=== PATIENT | male | born 1955 | race Caucasian/White ===

== ENCOUNTER 2019-02-17 10:40 | Inpatient (IN) ==
[~2019-02-17 10:40] MED LIST: LIDOCAINE W/ SODIUM BICARB 0.5 ML SYR ONE; LIDOCAINE W/ SODIUM BICARB 0.5 ML SYR SUBD ONE; Lactated Ringers 1,000 ML PRIMARY IV ONE; Nasal Sanitizer POPSWAB ampule 3 AMP (Nozin) PREOP DOSE ENOS SCH; Sodium Chloride 0.9% 0 ML IV ONE; Sodium Chloride 0.9% 250 ML ONE; Vancomycin Inj 1gm vial ONE; ceFAZolin Inj 2gm (Premix) 2 GM/50 ML BAG IV ONE
[2019-02-17] MEDS ORDERED: Vancomycin-PHA to Dose IV PRN (11:00)
[2019-02-17 11:13] LABS: BILIRUBIN,URINE NEGATIVE (NEG); CLARITY,URINE CLEAR (CLEAR); COLOR,URINE YELLOW (Y); GLUCOSE, URINE (UA) NEGATIVE (NEG); OCCULT BLOOD,URINE NEGATIVE (NEG); PROTEIN,URINE NEGATIVE (NEG); UROBILINOGEN,URINE 0.2 EU/dL (0.2)
[2019-02-17 11:14] LABS: URINE SAMPLE TYPE CLEAN CATCH URINE
[2019-02-17] MEDS ORDERED: Sodium Chloride 0.9% vial 10 ML ONE ×2 (12:39→17:08)
[2019-02-17] MEDS ORDERED: BUPIVACAINE 0.25% W/ EPI - 10 ML VIAL ONE (12:40)
[2019-02-17] MEDS ORDERED: BACITRACIN 50,000 UNIT VIAL IRRIG ONE ×2 (12:40→17:08)
[2019-02-17] MEDS ORDERED: PROPOFOL 10 MG/1 ML (200 MG/20 ML) VIAL IV ONE (12:48)
[2019-02-17] MEDS ORDERED: fentaNYL Inj 250 MCG/5 ML VIAL ONE ×2 (12:50→14:45)
[2019-02-17] MEDS ORDERED: Propofol 2,000 MG/200 ML VIAL IV ONE ×2 (12:50→16:14)
[2019-02-17] MEDS ORDERED: LIDOCAINE MPF 2% - 5 ML (20 MG/1 ML) ONE (12:50)
[2019-02-17] MEDS ORDERED: DEXAMETHASONE PF 10 MG/1 ML VIAL ONE (12:50)
[2019-02-17] MEDS ORDERED: KETOROLAC 30 MG/1 ML VIAL ONE (12:50)
[2019-02-17] MEDS ORDERED: ONDANSETRON 4 MG/2 ML VIAL ONE (12:50)
[2019-02-17] MEDS ORDERED: ROCURONIUM 10 MG/1 ML - 5 ML VIAL IVP ONE (12:57)
[2019-02-17] MEDS ORDERED: LIDOCAINE HCL 2 % 10 ML JELLY URO-JECT TOPICAL ONE (13:06)
[2019-02-17] MEDS ORDERED: LIDOCAINE HCL 2 % 10 ML JELLY URO-JECT TOPICAL PRN (13:53)
[2019-02-17] MEDS ORDERED: Lactated Ringers 1,000 ML PRIMARY IV ONE ×2 (14:17→17:12)
[2019-02-17] MEDS ORDERED: ceFAZolin 1 GM VIAL ONE (17:08)
[2019-02-17] MEDS ORDERED: NALOXONE 0.4 MG/1 ML VIAL ONE (17:56)
--- NOTE | 2019-02-17 18:05 | GEN.OPNOTE ---
Operative Note Surgery Date: 02/17/19 Preoperative Diagnosis: 1.) Right arm numbness and tingling. 2.) Multilevel advanced cervical degenerative disc disease, C3-4, C4-5, C5-6. 3.) Multilevel cervical spondylosis with facet arthropathy and hypertrophy C4-5 on the left and C5-6 bilaterally. 4.) Multilevel cervical central canal stenosis, mild C3-4, moderate C4-5, severe C5-6. 5.) Multilevel cervical neuroforaminal stenosis, moderately severe C3-4 on the left, severe C4-5 bilaterally and C5-6 on the right. 6.) Reversal of the normal cervical lordosis, C3-6. Postoperative Diagnosis: 1.) Right arm numbness and tingling. 2.) Multilevel advanced cervical degenerative disc disease, C3-4, C4-5, C5-6. 3.) Multilevel cervical spondylosis with facet arthropathy and hypertrophy C4-5 on the left and C5-6 bilaterally. 4.) Multilevel cervical central canal stenosis, mild C3-4, moderate C4-5, severe C5-6. 5.) Multilevel cervical neuroforaminal stenosis, moderately severe C3-4 on the left, severe C4-5 bilaterally and C5-6 on the right. 6.) Reversal of the normal cervical lordosis, C3-6. Procedure: 1.) Arthrodesis, anterior cervical, with discectomy, osteophytectomy and foraminotomies bilaterally with removal of the posterior longitudinal ligament with decompression of central canal and bilateral neuroforaminal stenosis and disc space preparation for fusion of the interspace, C3-4. (CPT code: 43676). 2.) Arthrodesis, anterior cervical, with discectomy, o steophytectomy and foraminotomies bilaterally with removal of the posterior longitudinal ligament with decompression of central canal and bilateral neuroforaminal stenosis and disc space preparation for fusion of the interspace, C4-5. (CPT code: 66867). 3.) Arthrodesis, anterior cervical, with discectomy, osteophytectomy and foraminotomies bilaterally with removal of the posterior longitudinal ligament with decompression of central canal and bilateral neuroforaminal stenosis and disc space preparation for fusion of the interspace, C5-6. (CPT code: 79420). 4.) Insertion of a 7 mm x 14 mm x 17 mm 6-degree lordotic Valery Tritanium C titanium anterior cervical cage filled in the center with [place] DBM Putty (implantable allograft) into the C3-4 interspace for fusion of the C3-4 interspace. (CPT code: 80527). 5.) Insertion of a 7 mm x 14 mm x 17 mm 6-degree lordotic [place] Tritanium C titanium anterior cervical cage filled in the center with [place] DBM Putty (implantable allograft) into the C4-5 interspace for fusion of the C4-5 interspace. (CPT code: 55411). 6.) Insertion of a 7 mm x 14 mm x 17 mm 6-degree lordotic [place] Tritanium C titanium anterior cervical cage filled in the center with [place] DBM Putty (implantable allograft) into the C5-6 interspace for fusion of the C5-6 interspace. (CPT code: 57171). 7.) Anterior cervical plating, C3-6 using a 3 level, 8 hole, 48 mm Valery Aviator titanium anterior cervical plate affixed to the C3 vertebral body with 4.0 mm x 16 mm variable angle titanium anterior cervical screws, to the C4 and C5 vertebral bodies using 4.0 mm x 14 mm variable angle titanium anterior cervical screws, and to the C6 vertebral body using 4.0 mm x 16 mm fixed angle titanium anterior cervical screws. (CPT code: 08209). 8.) Use of 5 cc of Valery DBM Putty (implantable allograft) for filling of the anterior cervical cages. (CPT code: 72113). 9.) Use of the operative microscope for the microsurgical techniques used for the C3-4, C4-5, and C5-6 discectomies and foraminotomies. (CPT code: 56585). 10.) Use of intra- operative fluoroscopy for location of the correct surgical levels and for confirmation of the final position of the intervertebral cages and final confirmation of the position of the anterior cervical hardware elements. 11.) Use of intra-operative neuromonitoring including EMG's, SSEP's, and MEP's. Surgeon: Delonte Daly MD Retail Pricing Coordinator: LAWRENCE Xavier Anesthesia Provider: Chaka Baer MD Anesthesia Type: General Estimated Blood Loss (mL): 75 Fluids: See anesthesia record Pathology: None Indications: Mr. Saha is a 63 year old gentleman that had been referred by Dr. Garza for neck pain and right arm numbness and tingling. Mr. Saha has had neck pain for years, but more recently has been experiencing numbness and tingling down his right arm. He denies any numbness or weakness in his hands. Mr Saha reports having cervical injections in the past, but has not had any recently. Mr. Saha is status post a right shoulder surgery and right carpal tunnel release performed by Dr. Garza on 09/09/18. He states he did well following this surgery. He has done physical therapy for his shoulder. Mr. Saha had imaging studies that demonstrated advanced degenerative disc disease at C3-4, C4-5, and C5-6. The study demonstrated prominent diffuse disc/osteophytes at these levels effacing the CSF signal anterior to the cord and producing mild central canal stenosis at C3-4, moderate at C4-5, and high grade central canal stenosis at C5-6, as well as severe bilateral C4-5 neuroforaminal stenosis and severe right C6-7 neuroforaminal stenosis. His symptoms had failed to improve with expectant management and non-operative therapies. We discussed the option of undergoing a C4-5, C5-6, and C6-7 anterior cervical discectomy and fusion for potential durable reduction of his neck pain and right arm symptoms. He wished to undergo the surgical procedure and presents today for the procedure. Findings: 1.) Collapsed disc spaces C4-5, C5-6, and C6-7. 2.) Kyphotic deformity C3-C6. 3.) Severe C6-7 central canal stenosis. 4.) Left C4-5, and severe bilateral C5-6 and C6-7 neuroforaminal stenosis. 5.) Right C6-7 herniated nucleus propulsis. Complications: None Operative Summary: Mr. Saha was met in the preoperative area. His documented surgical history and physical was reviewed. We reviewed the procedure to be performed and we were in agreement on the procedure to be performed and this matched what was written on the patient's consent form. Any questions that Mr. Saha or his had were answered before he was taken back to the operating room suite. Mr. Saha was brought back to the operating room suite. He was moved over onto the surgical bed in supine position. General anesthesia was induced by the anesthesia staff and he was intubated. A High catheter was placed in his bladder for the procedure. He had pneumatic compression hose placed on his lower legs bilaterally. His head was placed on a gel ring and rolled up surgical towels were placed in the intrascapular area and under his shoulders bilaterally. His arms were gently tucked at his sides. All bony prominences were well padded. His High catheter was checked to be free from kinks. His pneumatic compression hose were attached to a pneumatic compression devise. The C-arm fluoroscopy unit was used to help localize the skin incision for the approach to the intended surgical level. The skin was marked along the medial border of the sternocleidomastoid muscle with a skin marker. Mr. Saha was prepped and draped in the usual and standard fashion. He was given 2 grams of Ancef and 1 gram of vancomycin IV for perioperative antibiosis. A standard surgical timeout was performed identifying the correct patient, the correct procedure, and the correct equipment being available for the procedure. The intended skin incision was injected subcutaneously with quarter percent Marcaine with 1 in 200,000 epinephrine. The skin was incised with a 10 blade scalpel and all dermal and superficial bleeding points controlled with bipolar cautery. Dissection was continued down through the subcutaneous tissue to the level of the platysma muscle. The platysma muscle was incised with the Metzenbaum scissors in the direction of the skin incision. This allowed identification the medial border of the sternocleidomastoid muscle. Further dissection identified the omohyoid muscle which was circumferentially dissected out, tagged with two 0-Silk suture and then cut with a Metzenbaum scissors with the muscle stumps retracted with snaps attached to the sutures. Continued dissection was performed medial to the sternocleidomastoid muscle in both a sharp and blunt fashion down to the pre- vertebral fascia. The carotid artery was palpated to be lateral to the dissection plane. Cloward hand-held retractors were used to retract and protect the soft tissues while the prevertebral fascia was dissected with a Kitner. Once the disc space became exposed a bent spinal needle was placed into the disc space and the level was localized as the C4-5 level, one of the intended surgical levels with lateral fluoroscopy. Continued dissection of the prevertebral fascia was performed exposing the C3, C4, C5, and C6 vertebral bodies. The medial border of the longus coli muscle was dissected with Bovie cautery with an insulated tip turned down to a low setting from C3-C6 bilaterally. The hand-held Cloward retractors were then replaced with the Automatic Bandsaw Tender self-retaining retractor system which was first placed at the C3-4 level to expose this level and protect the soft tissues at this level. A 14 mm distraction pin was placed into the C3 vertebral body and another was placed into the C4 vertebral body. The operative microscope was brought into the surgical field and used for microsurgical techniques used for the C3-4 discectomy. An annulotomy was performed with a 15 blade scalpel and disc material was removed with a pituitary rongeur. Additional disc and cartilaginous endplate was loosened in the disc space using a small straight curette with the fragments being removed with a pituitary rongeur. Because of the degree of the collapse of the disc space, the high-speed Intiza drill with a matchstick bit was used to perform the majority of the discectomy at this level. The same drill with the same bit was also used for arthrodesis/decortication of the C3 and C4 endplates to prepare the endplates for fusion. The same drill with the same bit was used to drill away the prominent diffuse osteophytes along the posterior inferior aspect of the C3 vertebral body and the posterior superior aspect of C4 vertebral body as well as the uncovertebral joints bilaterally. Foraminotomies were performed bilaterally with the same drill with same bit. A nerve hook was used to define the plane between the posterior longitudinal ligament and the dura. The posterior longitudinal ligament was completely removed with small Kerrison punches. The same instruments were used to extend the foraminotomies bilaterally that had been started with the high-speed drill with a matchstick bit. Excellent decompression of the spinal canal, neuroforamen, and exiting nerve roots was assured both by visual inspection as well as by palpation with a nerve hook underneath the vertebral bodies and out the neuroforamen bilaterally. The interspace was irrigated with bacitracin irrigation. FloSeal hemostatic agent was placed over all exposed dural elements. The interspace was sized the appropriate size anterior cervical cage. A 7 mm x 14 mm x 17 mm 6-degree lordotic Tritanium C titanium anterior cervical cage was selected and filled in the center with [place] DBM Putty (implantable allograft) and then inserted into the C3-4 interspace with the branch operations specialist. The cage was gently countersunk with a bone tamp and mallet. The cage obtained good purchase between the C3 and C4 endplates. The final position of the cage was confirmed with lateral fluoroscopy. The C3 [place] distraction pin was removed and bony bleeding was controlled with FloSeal and a surgical jimmie. The Automatic Bandsaw Tender self-retaining retractor system was removed and placed across the C4-5 level for the exposure this level and the protection of the soft tissues at this level. The [place] distraction pin was placed into the C5 vertebral body. The operative microscope was used for this microsurgical techniques used for the C4-5 discectomy. An annulotomy was performed with a 15 blade scalpel and disc material was removed with a pituitary rongeur. Additional disc and cartilaginous endplate was loosened in the disc space with a small straight curette with the fragments being removed with a pituitary ronqeur. Again because of the degree of the disc space collapse at this level, the high-speed Intiza drill with a matchstick bit was used to perform the marjority of the discectomy at this level. The same drill with the same bit was used for rthrodesis/decortication of the C4 and C5 endplates preparing to prepare the endplates for fusion. The same drill with the same bit was used to drill away the diffuse, prominent osteophytes along the posterior inferior aspect of the C4 vertebral body and the posterior superior aspect of the C5 vertebral body as well as to drill away the uncovertebral joint hypertrophy bilaterally. Foraminotomies were performed bilaterally with the same drill with the same bit. A nerve hook was used to define the plane between the posterior longitudinal ligament and the dura. The posterior longitudinal ligament was completely removed with small Kerrison punches. The same instruments were used to extend the foraminotomies bilaterally that had been started with the high-speed drill with a matchstick bit. Excellent decompression of the spinal canal, neuroforamen, and exiting nerve roots was assured both by visual inspection as well as by palpation with a nerve hook underneath the vertebral bodies and out the neuroforamen bilaterally. The interspace was irrigated with bacitracin irrigation. FloSeal hemostatic agent was placed over all exposed dural elements. The interspace was sized the appropriate size anterior cervical cage. A 7 mm x 14 mm x 17 mm 6-degree Tritanium C titanium anterior cervical cage was selected and filled in the center with [place] DBM Putty (implantable allograft) and then inserted into the C4-5 interspace with the branch operations specialist. The cage was gen tly countersunk with a bone tamp and mallet. The cage obtained good purchase between the C4 and C5 endplates. The final position of the cage was confirmed with lateral fluoroscopy. The C5 [place] distraction pin was removed and bony bleeding was controlled with FloSeal and a surgical jimmie. The Automatic Bandsaw Tender self-retaining retractor system was removed and placed across the C5-6 level for the exposure this level and the protection of the soft tissues at this level. The [place] distraction pin was placed into the C6 vertebral body. The operative microscope was used for this microsurgical techniques used for the C5-6 discectomy. An annulotomy was performed with a 15 blade scalpel and disc material was removed with a pituitary rongeur. Additional disc and cartilaginous endplate was loosened in the disc space with a small straight curette with the fragments being removed with a pituitary ronqeur. This disc space was essentially completely collapsed similar to the others, so the high-sp eed Sky Frequency Adrian drill with a matchstick bit was used to perform the majority of the discectomy at this level. The same drill with the same bit was used for arthrodesis/decortication of the C5 and C6 endplates to prepare the endplates for fusion. The same drill with the same bit was used to drill away the diffuse, prominent osteophytes along the posterior inferior aspect of the C5 vertebral body and the posterior superior aspect of the C6 vertebral body as well as to drill away the uncovertebral joint hypertrophy bilaterally. Foraminotomies were performed bilaterally with the same drill with the same bit. A nerve hook was used to define the plane between the posterior longitudinal ligament and the dura. The posterior longitudinal ligament was completely removed with small Kerrison punches. The same instruments were used to extend the foraminotomies bilaterally that had been started with the high-speed drill with a matchstick bit. Excellent decompression of the spinal canal, neuroforamen, and exiting nerve roots was assured both by visual inspection as well as by palpation with a nerve hook underneath the vertebral bodies and out the neuroforamen bilaterally. The interspace was irrigated with bacitracin irrigation. FloSeal hemostatic agent was placed over all exposed dural elements. The interspace was sized the appropriate size anterior cervical cage. A 7 mm x 14 mm x 17 mm 6-degree Tritanium C titanium anterior cervical cage was selected and filled in the center with Valery DBM Putty (implantable allograft) and inserted into the C5-6 interspace with the branch operations specialist. The cage was gently countersunk with a bone tamp and mallet. The cage obtained good purchase between the C5 and C6 endplates. The final position of the cage was confirmed with lateral fluoroscopy. The [place] distraction pins in the C5 and C6 vertebral bodies were removed. Bony bleeding was controlled FloSeal and surgical patties. The Automatic Bandsaw Tender self- retaining retractor system was removed and placed in the center portion of the surgical dissection to provide the proper exposure needed for the instrumentation portion of the procedure. Any remaining C3, C4, C5, and C6 anterior osteophytes were removed with the large [place] rongeur as well as with the high speed drill with the matchstick bit. The appropriate size anterior cervical plate were selected both by visual inspection as well as by lateral fluoroscopy. A 3 level, 8 hole, 48 mm [place] Aviator titanium anterior cervical plate was selected and affixed to the C3 vertebral bodies using 4.0 mm x 16 mm variable angle titanium anterior cervical screws and to the C4 and C5 vertebral bodies using 4.0 mm x 14 mm variable angle titanium screws, and to the C6 vertebral body using 4.0 mm x 16 mm fixed angle titanium anterior cervical screws. All screws obtained good purchase in the vertebral body bone. The locking mechanism was then deployed at each with visual inspection confirming that the locking mechanism fully deployed across each of the screw heads at each level of the plate bilaterally. The Automatic Bandsaw Tender self-retaining retractor system was removed from the surgical site. Final AP and lateral fluoroscopic images were obtained. The harvey of the dissection plane were inspected for any bleeding points. Any identified were coagulated with bipolar cautery. The surgical site was copiously irrigated with bacitracin irrigation allowing the irrigant to sit to again inspect for any bleeding points with none identified. A medium JAROCHO drain was placed into the surgical site. The closure portion of the procedure was begun. The omohyoid muscle was re-approximated by the 0-Silk suture attached to the muscle stumps and by two interrupted 3-0 Vicryl suture. The platysma muscle was reapproximated with 3-0 Vicryl suture in an interrupted fashion. The dermis and superficial subcutaneous tissue was reapproximated with 3-0 Vicryl suture in an inverted interrupted fashion. The incision was cleansed with a bacitracin soaked sponge and dried with a sterile dry sponge. Steri-Strips were placed across the incision. The incision was dressed with a Covaderm dressing. The surgical drain was secured with mei ture. The drain site was dressed. All surgical drapes removed from Mr. Saha. He was carefully moved over onto the PACU stretcher. He was awoken and extubated by the anesthesia staff. He was taken to the recovery room in stable condition. All surgical counts reported as correct by the scrub and circulating personnel. A Physician's Retail Pricing Coordinator, Ms. Angela Toney PA-C, assisted with the procedure including the exposure and closure portions of the procedure. She also provided irrigation and suctioning throughout the procedure.
[2019-02-17] MEDS ORDERED: fentaNYL Inj 100 MCG/2 ML VIAL IVP PRN (18:09)
[2019-02-17] MEDS ORDERED: MORPHINE SULFATE 2 MG/1 ML IVP PRN ×2 (18:09→19:44)
[2019-02-17] MEDS ORDERED: ePHEDrine Inj 50 MG/ML AMP IVP PRN (18:09)
[2019-02-17] MEDS ORDERED: ONDANSETRON 4 MG/2 ML VIAL IVP PRN ×2 (18:09→19:44)
[2019-02-17] MEDS ORDERED: diphenhydrAMINE 50 MG/1 ML VIAL IVP PRN (18:09)
[2019-02-17] MEDS ORDERED: Metoclopramide Inj 10 MG/2 ML VIAL IVP PRN (18:09)
[2019-02-17] MEDS ORDERED: LIDOCAINE W/ SODIUM BICARB 0.5 ML SYR SUBD PRN (18:09)
--- NOTE | 2019-02-17 18:09 | CRNA.PROGR ---
Anesthesia Recovery Phase I - Post Anesthesia Evaluation Patient's Condition on Arrival in Phase I: Stable (sleeping) Pain Level: 0
--- NOTE | 2019-02-17 18:09 | CRNA.PROGR ---
Anesthesia Time - Procedure/Recovery Time Start Date: 02/17/19 End Date: 02/17/19 Anesthesia : Time In: 12:54 Anesthesia : Time Out: 18:05 Anesthesia : Total Time: 311 - Total Anesthesia Time Total Anesthesia Time (minutes): 311 - Other Weight: 81.919 kg Height: 5 ft 9 in Body Mass Index (BMI): 26.6 Anesthesia Type: General Anesthesia : ET
[2019-02-17] MEDS ORDERED: Lactated Ringers 1,000 ML PRIMARY IV SCH (18:15)
[2019-02-17] MEDS: HYDROmorphone 2 MG/1 ML IVP PRN ×3 (18:27→18:44)
--- NOTE | 2019-02-17 18:37 | NEURO.PROG ---
Subjective Post Op Day: 0 Pain Management: IV High Catheter: Yes Additional Details: Waking up in PACU; still sleepy. Not conversant yet. Moving all extremities well. Transfer to med/surg floor when parameters met. Continue post-operative antibiotics. Continue post-operative pain control. Advance diet. Mobilize. Objective : Data - Vital Signs Vital Signs and I&O: Vital Signs - Last Taken Temperature 98.2 F 02/17/19 12:15 Pulse Rate 62 02/17/19 12:15 Respiratory Rate 15 02/17/19 12:15 Blood Pressure 159/88 02/17/19 12:15 Pulse Ox 97 02/17/19 12:15 Intake and Output (24hr x 4 totals) 02/15/19 02/16/19 02/17/19 02/18/19 05:59 05:59 05:59 05:59 Intake Total 2400 / 2400 Output Total 695 / 695 Balance 1705 / 1705
[2019-02-17] MEDS ORDERED: HYDROcodone-APAP 5 MG -325 MG TABLET PO PRN (19:44)
[2019-02-17] MEDS ORDERED: HYDROcodone-APAP 7.5 MG-325 MG TABLET PO PRN (19:44)
[2019-02-17] MEDS ORDERED: Fleet Enema 133ml RECTAL PRN (19:44)
[2019-02-17] MEDS ORDERED: DIAZEPAM 10 MG/2 ML (5 MG/1 ML) CARPUJECT IVP PRN (19:44)
[2019-02-17] MEDS ORDERED: Ondansetron ODT Tab 4 MG TAB PO PRN (19:44)
[2019-02-17] MEDS ORDERED: MAGNESIUM 400 MG/5 ML - 30 ML (MILK OF MAGNESIA) PO PRN (19:44)
[2019-02-17] MEDS ORDERED: DOCUSATE 100 MG CAPSULE PO PRN (19:44)
[2019-02-17] MEDS ORDERED: BISACODYL 5 MG TABLET PO PRN (19:44)
[2019-02-17] MEDS ORDERED: Vancomycin-PHA to Dose IV SCH (19:44)
[2019-02-17] MEDS ORDERED: HYDROcodone-APAP 10 MG-325 MG TABLET PO PRN (19:44)
[2019-02-17] MEDS ORDERED: DIAZEPAM 10 MG TABLET PO PRN (19:44)
[2019-02-17] MEDS ORDERED: MAGNESIUM CITRATE 296 ML SOLUTION PO PRN (19:44)
--- NOTE | 2019-02-17 20:39 | CONSULT ---
Consult Note - Consult Consult Date: 02/17/19 Reason for Consult: PostOp Consulation : Neuro Requesting Physician: Dr. Daly Primary Care Provider: NONE NONE - History of Present Illness History of Present Illness: This is a 63 years old male with medical history significant for history of degenerative joint disease, hypertension, hypercholesterolemia, GERD who came into the hospital to have neck surgery and was done by Dr. Daly today please see his note. Hospitalist service were consulted postoperatively for management of medical issues. Patient is denying symptoms currently he is hungry he said. Otherwise no nausea or vomiting no shortness of breath. Past Medical History Medical History: 1. History of hypertension. 2. History of hyperchol esterolemia. 3. History of GERD. 4. Degenerative cervical disease Surgical History: 1. History of shoulder surgery before Family History: Reviewed an Not Pertinent Past Social History: Doesn't smoke, occasionally drinking or drugs. Tobacco Use: Never Smoker In the Past 12 Months, Have Used or Abuse Any of the Following Substance: None Review of Systems - Review of Systems All Systems: Reviewed & No Additional Complaints Except as Stated Medication / Allergies Home Medications: Home Medications Medication Instructions Recorded Confirmed Metoprolol Succinate 50 mg PO DAILY 08/18/18 02/16/19 Naproxen Sodium [Aleve] 220 mg PO PRN PRN 08/18/18 02/16/19 Omeprazole 20 mg PO DAILY 08/18/18 02/16/19 Simvastatin [Zocor] 40 mg PO DAILY 08/18/18 02/16/19 Amlodipine Besylate [Norvasc] 5 mg PO DAILY 02/16/19 02/16/19 Hydrochlorothiazide [HydroDiuril 25 mg PO DAILY 02/16/19 02/16/19 Tab] HYDROcodone/APAP 7.5/325 Tab 1 - 2 tab PO Q4H PRN #10 tab 02/18/19 [[place] 7.5/325 Tab] Allergies/Adverse Reactions: Allergies Allergy/AdvReac Type Severity Reaction Status Date / Time promethazine [From Phenergan] Allergy Severe NOT Verified 02/16/19 09:27 APPLICABLE Exam - Vitals Vital Signs: Vital Signs Temperature 97.5 F Temperature Source Temporal Artery Scan Pulse Rate [Pulse Oximeter] 82 Pulse Rate [Pulse Oximeter 79 Right] Pulse Rate 74 Respiratory Rate 20 Blood Pressure [Left Arm] 144/82 Blood Pressure [Left Arm] 145/84 Blood Pressure 131/78 Pulse Ox 92 Oxygen Flow Rate 4 Oxygen Delivery Method Nasal Cannula Height 5 ft 9 in Weight 180 lb - General General Appearance: No Acute Distress, Cooperative - Head Head Exam: Normal Inspection - Eye Eye Exam: POSITIVE: Normal Appearance - ENT ENT Exam: POSITIVE: Normal Exam - Neck Additional Neck Exam Details: Dressing applied to the neck anteriorly with a drain noted. - Respiratory Respiratory Exam: POSITIVE: Clear to Auscultation - Bilaterally - Cardiovascular Cardiovascular Exam: POSITIVE: RRR - GI/Abdominal GI/Abdominal Exam: POSITIVE: Normal Bowel Sounds - Rectal Rectal Exam: POSITIVE: Deferred - External Exam: POSITIVE: Deferred - Extremities Extremities Exam: POSITIVE: Normal Inspection - Back Back Exam: POSITIVE: Normal Inspection - Neurological Neurological Exam: POSITIVE: Alert, Oriented x 3, CN II-XII Intact, No Facial Droop, Speech Intact / Clear - Psychiatric Psychiatric Exam: POSITIVE: Normal Affect - Integumentary Integumentary Exam: POSITIVE: Normal Color Results - Labs CBC and BMP: 02/18/19 04:35 02/18/19 04:35 Assessment and Plan - Patient Problems (1) High blood pressure Current Visit: No Status: Chronic Comment: Continue same medications. Code(s): I10 - Essential (primary) hypertension (2) GERD (gastroesophageal reflux disease) Current Visit: No Status: Chronic Comment: Same med Code(s): K21.9 - Gastro-esophageal reflux disease without esophagitis (3) Neck pain Current Visit: Yes Status: Acute Comment: he is status post surgery management per Dr. Daly. Code(s): M54.2 - Cervicalgia
[2019-02-17] MEDS ORDERED: Simvastatin Tab 40 MG TAB PO SCH (21:00)
[2019-02-17] MEDS: ceFAZolin Inj 1 GM in Sodium Chloride 0.9% 100 ML IV SCH (23:06)
[2019-02-18 04:59] LABS: BASOPHILS # (AUTO) 0 10*3/UL; BASOPHILS % (AUTO) 0 % (0-1); EOSINOPHILS # (AUTO) 0 10*3/UL; EOSINOPHILS % (AUTO) 0 % (0-8); Hematocrit [HCT] 39.6 % (42.0-52.0); Hemoglobin [HGB] 13.2 g/dL (14.0-18.0); LYMPHOCYTES # (AUTO) 0.63 10*3/uL; MEAN CORPUSCULAR HEMOGLOBIN 30.8 PG (27-31); MEAN CORPUSCULAR HGB CONC 33.3 g/dL (33-37); MEAN CORPUSCULAR VOLUME 92.3 FL (80-90); MEAN PLATELET VOLUME 9.9 FL (7.4-12.2); MONOCYTES # (AUTO) 0.38 10*3/UL (0.3-0.8); MONOCYTES % (AUTO) 4.9 % (5-15); NEUTROPHILS # (AUTO) 6.73 10*3/UL; RED BLOOD COUNT 4.29 10^6/uL (4.70-6.10)
[2019-02-18 05:25] LABS: BLOOD UREA NITROGEN 19 mg/dL (7-22)
[2019-02-18 05:43] LABS: PLATELET MORPHOLOGY COMMENT NORMAL MORPHOLOGY (NORM); RBC MORPHOLOGY COMMENT NORMAL MORPHOLOGY (NORM); WBC MORPHOLOGY COMMENT NORMAL MORPHOLOGY (NORM)
--- NOTE | 2019-02-18 06:35 | NEURO.PROG ---
Subjective Post Op Day: 1 Pain Management: PO Vigil Catheter: Yes Diet: Regular Ambulating: Yes Additional Details: Mr Saha is awake and alert. Neuro exam by Dr Daly reveals good muscle strength in bilateral hand and arms. His preop symptom of tingling in the right arm has resolved. He denies neck pain and did not require pain medication through the night. He denies difficulty swallowing. His incision is dry and intact. Hemovac drain had 40ml of serosanguinous drainage in 12 hours. The red, blotchy raygoza on his torso at the end of surgery were thought to be a heat rash and are almost entirely resolved. He denies pain or itching from these. He feels ready to go home. Plan: Mobilize Discontinue vigil Discharge home Objective : Data - Labs CBC and BMP: 02/18/19 04:35 02/18/19 04:35 - Vital Signs Vital Signs and I&O: Vital Signs - Last Taken Temperature 97.1 F 02/18/19 04:15 Pulse Rate 77 02/18/19 04:15 Respiratory Rate 20 02/18/19 04:15 Blood Pressure 134/71 02/18/19 04:15 Pulse Ox 93 02/18/19 05:18 Intake and Output (24hr x 4 totals) 02/16/19 02/17/19 02/18/19 02/19/19 05:59 05:59 05:59 05:59 Intake Total 4980 / 4980 Output Total 1735 / 1735 Balance 3245 / 3245
[2019-02-18 06:37] VITALS: BP 144/75; RESP 12; TEMP 98.1; O2SAT 90
--- NOTE | 2019-02-18 07:06 | NEURO.PROG ---
Subjective Post Op Day: 1 Additional Details: Mr Saha was also given incision care and activity instructions and a post op appointment with Dr. Daly in [place] on 03/02. Objective : Data - Labs CBC and BMP: 02/18/19 04:35 02/18/19 04:35 - Vital Signs Vital Signs and I&O: Vital Signs - Last Taken Temperature 98.1 F 02/18/19 06:30 Pulse Rate 83 02/18/19 06:50 Respiratory Rate 12 02/18/19 06:30 Blood Pressure 144/75 02/18/19 06:30 Pulse Ox 90 02/18/19 06:30 Intake and Output (24hr x 4 totals) 02/16/19 02/17/19 02/18/19 02/19/19 05:59 05:59 05:59 05:59 Intake Total 4980 / 4980 600 / 600 Output Total 1735 / 1735 300 / 300 Balance 3245 / 3245 300 / 300
[2019-02-18] MEDS: ceFAZolin Inj 1 GM in Sodium Chloride 0.9% 100 ML IV SCH (08:12)
[2019-02-18] MEDS ORDERED: METOPROLOL SUCCINATE 50 MG SR 24H TABLET PO SCH (09:00)
[2019-02-18] MEDS ORDERED: AmLODIPine Tab 5 MG TABLET PO SCH (09:00)
[2019-02-18] MEDS ORDERED: Simvastatin Tab 40 MG TAB PO SCH (09:00)
[2019-02-18] MEDS ORDERED: HYDROCHLOROTHIAZIDE 25 MG TABLET PO SCH (09:00)
[2019-02-18] MEDS ORDERED: OMEPRAZOLE 20 MG CAPSULE PO SCH (09:00)
--- NOTE | 2019-02-18 16:38 | PTI REPORT ---
Thank you for the referral of Danielle Saha. He was seen on 02/18/19 for an inpatient evaluation status post cervical fusion. SUBJECTIVE: The patient is a 63-year-old male who underwent a cervical fusion yesterday. The patient states that he is doing pretty well this morning and reports minimal pain. The patient reports that prior to his surgery he was having numbness and tingling into his right upper extremity and since his surgery he reports no numbness and tingling into the right upper extremity. The patient reports that he has had carpal tunnel surgery on both the right and the left. The patient and his live in [place]. The patient states that he has three steps into their home and then the home is all one level from there. The patient reports he was not using an assistive device prior to his surgery and denies any recent falls. PAST MEDICAL HISTORY: Past medical history can be found in the patient's medical record. OBJECTIVE FINDINGS: General observations: The patient was alert and oriented to setting upon PT arrival. Bed mobility: The patient was able to transfer from supine to seated edge of bed with stand by assist x1 for safety. The patient denied any lightheadedness or dizziness with sitting. The cervical collar was placed around the patient and he was instructed on how to properly use this and to use it whenever he is up. The patient was also instructed on lifting precautions for status post cervical fusion. Transfers: The patient was able to transfer from bed to stand safely and independently. Ambulation: The patient ambulated 150 feet with stand by assist x1 and ascended and descended up and down one flight of stairs with stand by assist x1. ASSESSMENT: The patient has good rehab potential. Problem List: Patient is status post cervical fusion Short-Term Goals: To be met by discharge from inpatient: Patient will be able to don and doff his [place] cervical collar independently. Patient will be able to transfer from bed to stand safely and independently. Patient will be able to ambulate up and down one flight of stairs safely and independently. Patient will be able to ambulate at least 150 feet safely and independently. Long-Term Goals: To be met following discharge from inpatient: Patient may be seen by outpatient physical therapy if deemed necessary by his surgeon. TREATMENT PLAN: Patient has met all goals for therapy and we plan to discharge him. INITIAL TREATMENT: Treatment today consisted of the initial evaluation. Following treatment the patient was left in the chair in his room. Nursing staff was notified that the patient has met therapy goals. SERGO
--- NOTE | 2019-02-18 16:57 | OTI REPORT ---
Thank you for the referral of Danielle Saha. He was seen on 02/18/19 for an occupational therapy inpatient evaluation status post cervical fusion. SUBJECTIVE: The patient is a 63-year-old male. The patient reports that he is feeling pretty good with minimal pain. The patient reports that he lives in [place], [place] with his . They have three steps to the entrance of their home with a handrail on each side. The patient was independent with all ADL tasks at prior level of function with no difficulties. The patient reports that he would like to get dressed and go for a walk this morning. PAST MEDICAL HISTORY: Past medical history can be found in the patient's medical record. OBJECTIVE FINDINGS: Bed mobility: The patient demonstrated the ability to perform bed mobility tasks to include moving from supine to sitting edge of bed independently. Transfers: The patient was able to complete a functional transfer from edge of bed to standing independently. Activities of daily living: The patient did demonstrate the ability to complete upper extremity dressing tasks with a brisket puller dipika shirt independently and lower extremity dressing tasks to include donning undergarments and sweatpants independently. The patient was able to do this while maintaining balance in a standing position without sitting. The patient did not require use of adaptive equipment and his neck brace was in place. ASSESSMENT: The patient has met occupational therapy standards in terms of independence with ADL tasks and will be discharged from occupational therapy. The patient was not issued any adaptive equipment. TREATMENT PLAN: Patient will be discharged from occupational therapy. INITIAL TREATMENT: Treatment today consisted of the initial evaluation. The patient was educated in post op cervical fusion precautions and was educated in the use of the neck brace. Following OT session the patient did ambulate and perform functional mobility tasks with physical therapy. SERGO
== END 2019-02-18 10:01 | disposition home or self-care (01) | DRG 473 ==
LOC: OPS 10:40 → MED/SURG 18:06
PROVIDERS: ADMIT Neurological Surgery; ATTEND Neurological Surgery